=== PATIENT | female | born 1960 | race Two or more races ===

== ENCOUNTER 2016-09-04 20:07 | Inpatient (IN) | payer MEDICAID ==
--- NOTE | 2016-09-04 22:37 | EDPHY ---
HPI/HX/ROS/PE/MDM Narrative: Chief complaint: Left knee pain and swelling HPI: 56-year-old woman presenting with worsening left knee pain and swelling which is progressing upper leg. Patient was seen by her primary care physician yesterday and started on naproxen. Patient states that she is having increasing swelling in her needed feels like it is coming up the front of her thigh. She states that is warm to the touch. Denies any injuries. No fevers or chills. Does not have a history of prior knee injuries or gout in the past. She has been taking some naproxen with some relief. Today she called her primary care physician and was told to present here for evaluation for possible knee infection. She does have an appoint with her doctor tomorrow. ROS: 10 point Review of Systems is negative except as noted in the HPI. Physical exam: Gen: Awake, Alert, No Distress HEENT: Nose: no rhinorrhea Eyes: PERRLA, EOMI Mouth: Moist mucosa Neck: Supple, no JVD Chest: nontender, lungs clear to auscultation Heart: S1, S2 normal, no murmur Abd: Soft, non-tender, no guarding Back: no CVA tenderness, no midline tenderness Ext: no edema, left knee is swollen with an effusion and is mildly warm to the touch. There is no erythema. There is mild swelling progressing perhaps 4-5 cm upper anterior thigh. She has no calf tenderness or swelling. She has decreased range of motion of her knee secondary see some discomfort. She has no hip pain. There is no lymphadenopathy. Sensations intact. Skin: no rash Neuro: CN II-XII intact, Sensation grossly intact, Strength 5/5 in bilateral upper and lower extremities ED Course: 2255 synovial fluid is back. She has 49,159 white cells with no red cells in her aspirate. This is very concerning for the possibility of a septic joint. Preliminary result is that the crystals are negative. No other g stains are back at this point. I have discussed with Dr. Christiano Briceno, emergency physician at [facility] ED and I have spoke with Fabrice, the orthopedic PA for Dr. Zuleta. Plan will be to transfer the patient to [facility] Emergency Department where she will have an IV placed blood work will be drawn there. I do not think will be beneficial to put an IV in at this time as blood will be drawn right now would only be [place] over the [facility] any way and she will likely get antibiotics and treatment sooner by sending her directly there by private vehicle now. Patient's is here and will drive her over there. Dr. Song KENNEDY will continue to follow. - Data Points Laboratory Results: 09/04/16 21:00 Synovial Source SYNOVIAL Synovial Color PALE YELLOW (CLS/PALE YL) Synovial Appearance CLOUDY H (CLEAR) Synovial WBC Pending Synovial RBC Pending Synovial Crystals Pending Synovial Glucose Pending General Time Seen by Provider: 09/04/16 20:39 Initial Vital Signs: Initial Vital Signs Temperature (C) 36.9 C 09/04/16 20:34 Heart Rate 87 09/04/16 20:34 Respiratory Rate 18 09/04/16 20:34 Blood Pressure 110/71 09/04/16 20:34 O2 Sat (%) 94 09/04/16 20:34 O2 Delivery Mode Room Air Allergies/Adverse Reactions: Sulfa (Sulfonamide Antibiotics) Allergy (Intermediate, Verified 11/23/14 15:55) Rash Home Medications: Medication Instructions Recorded NITROGLYCERIN 09/17/09 Naproxen 09/04/16 Departure - Departure Disposition: [facility] ER Clinical Impression: Septic joint Condition: Fair Additional Instructions: Go directly to the [facility] Emergency Department for further evaluation.
[2016-09-04 22:46] LABS: GLUCOSE, SYNOVIAL FLUID 88 mg/dL (55-113); WBC, SYNOVIAL FLUID 49159 /mm3 (0-150)
--- NOTE | 2016-09-04 23:10 | UCPHY ---
H & P Patient Type: Established Chief Complaint Nursing Narrative: c/o l knee pain/swelling since saturday. saw her pcp yesterday started on naproxen. states swelling worse today Time Seen by Provider: 09/04/16 20:39 HPI/ROS: Chief complaint: Left knee pain and swelling HPI: 56-year-old woman presenting with worsening left knee pain and swelling which is progressing upper leg. Patient was seen by her primary care physician yesterday and started on naproxen. Patient states that she is having increasing swelling in her needed feels like it is coming up the front of her thigh. She states that is warm to the touch. Denies any injuries. No fevers or chills. Does not have a history of prior knee injuries or gout in the past. She has been taking some naproxen with some relief. Today she called her primary care physician and was told to present here for evaluation for possible knee infection. She does have an appoint with her doctor tomorrow. ROS: 10 point Review of Systems is negative except as noted in the HPI. Physical exam: Gen: Awake, Alert, No Distress HEENT: Nose: no rhinorrhea Eyes: PERRLA, EOMI Mouth: Moist mucosa Neck: Supple, no JVD Chest: nontender, lungs clear to auscultation Heart: S1, S2 normal, no murmur Abd: Soft, non-tender, no guarding Back: no CVA tenderness, no midline tenderness Ext: no calf edema, left knee is swollen with an effusion and is mildly warm to the touch. There is no erythema. There is mild swelling progressing perhaps 4- 5 cm upper anterior thigh. She has no calf tenderness or swelling. She has decreased range of motion of her knee secondary see some discomfort. She has no hip pain. There is no lymphadenopathy. Sensations intact. Skin: no rash Neuro: CN II-XII intact, Sensation grossly intact, Strength 5/5 in bilateral upper and lower extremities - Medical/Surgical History Hx Cardiac Disease: Yes Other PMH: angina - Family History Significant Family History: No pertinent family hx - Social History Smoking Status: Current every day smoker Constitutional: Initial Vital Signs Temperature (C) 36.9 C 09/04/16 20:34 Heart Rate 87 09/04/16 20:34 Respiratory Rate 18 09/04/16 20:34 Blood Pressure 110/71 09/04/16 20:34 O2 Sat (%) 94 09/04/16 20:34 O2 Delivery Mode Room Air Allergies/Adverse Reactions: Sulfa (Sulfonamide Antibiotics) Allergy (Intermediate, Verified 11/23/14 15:55) Rash Home Medications: Medication Instructions Recorded Aspirin EC [Aspirin EC 81 mg (*)] 81 mg PO DAILY 09/05/16 Herbals/Supplements -Info Only 1 ea PO DAILY 09/05/16 Ibuprofen [Motrin (*)] 600 mg PO DAILY PRN 09/05/16 Nitroglycerin [Nitrostat 0.4 mg 0.4 mg SL Q5M PRN 09/05/16 (*)] Medical Decision Making Procedures: Procedure: Arthrocentesis. After verbal informed consent was obtained explaining the risks including but not limited to infection and bleeding a arthrocentesis was performed on the left knee. The patient was prepped and draped in the usual sterile fashion. The joint was anesthetized with 1% lidocaine with epinephrine. Approximately 45 mL of cloudy yellow fluid was obtained. There were no complications. The procedure was performed by myself. ED Course/Re-evaluation: 2255 synovial fluid is back. She has 49,159 white cells with no red cells in her aspirate. This is very concerning for the possibility of a septic joint. Preliminary result is that the crystals are negative. No other g stains are back at this point. I have discussed with Dr. Christiano Briceno, emergency physician at [facility] ED and I have spoke with Fabrice, the orthopedic PA for Dr. Zuleta. Plan will be to transfer the patient to [facility] Emergency Department where she will have an IV placed blood work will be drawn there. I do not think will be beneficial to put an IV in at this time as blood will be drawn right now would only be [place] over the [facility] any way and she will likely get antibiotics and treatment sooner by sending her directly there by private vehicle now. Patient's is here and will drive her over there. Dr. Zuleta PA will continue to follow. - Data Points Laboratory Results: Laboratory Results 09/04/16 23:55 09/04/16 23:55 Microbiology Results: MICROBIOLOGY 09/04/16 21:00 Knee - Aspirate Gram Stain - Final 09/04/16 21:00 Knee - Aspirate Anaerobic Culture - Preliminary Medications Given: Discontinued Medications Sodium Chloride (Ns) 1,000 mls @ 0 mls/hr IV ONCE ONE PRN Reason: Wide Open Stop: 09/04/16 23:53 Last Admin: 09/05/16 00:18 Dose: 1,000 mls Cefepime HCl 2 gm/ Dextrose 100 mls @ 200 mls/hr IV EDNOW ONE PRN Reason: Protocol Stop: 09/05/16 00:43 Last Admin: 09/05/16 01:38 Dose: 100 mls Vancomycin/Sodium Chloride (Vancomycin 1 Gm (Premix)) 250 mls @ 250 mls/hr IV EDNOW ONE PRN Reason: Protocol Stop: 09/05/16 01:13 Last Admin: 09/05/16 00:25 Dose: 250 mls Vancomycin/Sodium Chloride (Vancomycin 1 Gm (Premix)) 250 mls @ 250 mls/hr IV Q12H OSVALDO Stop: 10/05/16 12:29 Last Admin: 09/05/16 16:39 Dose: Not Given Morphine Sulfate (Morphine) 4 mg IVP EDNOW ONE Stop: 09/04/16 23:54 Last Admin: 09/05/16 00:18 Dose: 4 mg Ondansetron HCl (Zofran) 4 mg IVP EDNOW ONE Stop: 09/04/16 23:54 Last Admin: 09/05/16 00:18 Dose: 4 mg Departure - Departure Disposition: [facility] Acute Clinical Impression: Septic joint Qualifiers: Septic arthritis location: knee Septic arthritis organism: due to unspecified organism Laterality: left Qualifier Code: (M00.9) Pyogenic arthritis, unspecified Condition: Fair - PQRS PQRS Measurement: NA
[2016-09-04 23:24] LABS: CRYSTALS, SYNOVIAL FLUID NONE SEEN (NONE SEEN)
--- NOTE | 2016-09-04 23:48 | EDPHY ---
H & P Time Seen by Provider: 09/04/16 20:39 HPI/ROS: HPI CHIEF COMPLAINT: left knee pain HISTORY OF PRESENT ILLNESS: This patient 56-year-old female, presents to the emergency room after she was seen at [facility] urgent care for left knee pain. Patient had a arthrocentesis performed and had fluid analysis and showed a white count close to 50,000. She was sent here for further evaluation and concern of septic knee. Patient tells me that on Saturday she developed knee pain this was atraumatic. The pain progressively got worse she saw her doctor was given naproxen however the pain persisted she went to urgent care [facility] and then was referred here. She denies having a septic joint in the past, denies IV drug use, denies any daily medication except nitroglycerin for angina. She does smoke tobacco. She tells me her pain is 6/10 left knee. Past Medical History: Angina Past Surgical History: Denies significant surgical history Social History: Daily tobacco use, denies drugs or alcohol Family History: Noncontributory ROS REVIEW OF SYSTEMS: A comprehensive 10 point review of systems is otherwise negative aside from elements mentioned in the history of present illness. Exam Constitutional triage nursing summary reviewed, vital signs reviewed, awake/ alert. Eyes normal conjunctivae and sclera, EOMI, PERRLA. HENT normal inspection, atraumatic, moist mucus membranes, no epistaxis, neck supple/ no meningismus, no raccoon eyes. Respiratory clear to auscultation bilaterally, normal breath sounds, no respiratory distress, no wheezing. Cardiovascular rate normal, regular rhythm, no murmur, no edema, distal pulses normal. Gastrointestinal soft, non-tender, no rebound, no guarding, normal bowel sounds, no distension, no pulsatile mass. Genitourinary no CVA tenderness. Musculoskeletal left knee: Tender palpation over the anterior patella, there is a joint effusion present on exam, she does have full range of motion however is pain with range of motion, she is neurovascularly intact distally with good distal pulse, good cap refill, warm extremity. No signs of significant erythema. no midline vertebral tenderness, full range of motion, no calf swelling, no tenderness of extremities, no meningismus, good pulses, neurovascularly intact. Skin pink, warm, & dry, no rash, skin atraumatic. Neurologic awake, alert and oriented x 3, AAOx3, moves all 4 extremities equally, motor intact, sensory intact, CN II-XII intact, normal cerebellar, normal vision, normal speech. Psychiatric normal mood/affect. Heme/Lymph/Immune no lymphadenopathy. Differential Diagnosis: Includes but is not limited to in a particular order, septic joint, inflammatory arthritis, gout, pseudogout Medical Decision Making: This patient had an IV established obtain blood work including CBC, ESR, CRP, patient had an x-ray of the left knee. She received IV pain medicine IV fluids and IV antibiotics. I will consult Orthopedics. Although this orthopedics was consulted at urgent care and is aware of this patient. Re-evaluation: 0112: re-evaluation at this time patient is resting comfortably. Broad- spectrum antibiotics ordered for IV vancomycin and IV cefepime for presumed septic joint. His noted CRP is very elevated, does have systemic white count, and synovial fluid that is concerning for septic joint. I consult the hospitalist service Dr. Alvarado who accepts admission. I have also consult Orthopedics Dr. Zuleta ED x-ray left knee: shows no bony abnormality med however on the medial aspect soft tissue there is a hypoechoic area this may be a bursitis. . 0151: Spoke with Dr. Gold Zuleta who will see and evaluate the patient. Source: Patient - Personal History Current Tetanus/Diphtheria Vaccine: Yes Current Tetanus Diphtheria and Acellular Pertussis (TDAP): Yes - Medical/Surgical History Hx Cardiac Disease: Yes Other PMH: angina - Family History Significant Family History: No pertinent family hx - Social History Smoking Status: Current every day smoker Constitutional: Initial Vital Signs Temperature (C) 36.9 C 09/04/16 20:34 Heart Rate 87 09/04/16 20:34 Respiratory Rate 18 09/04/16 20:34 Blood Pressure 110/71 09/04/16 20:34 O2 Sat (%) 94 09/04/16 20:34 O2 Delivery Mode Room Air Allergies/Adverse Reactions: Sulfa (Sulfonamide Antibiotics) Allergy (Intermediate, Verified 11/23/14 15:55) Rash Home Medications: Medication Instructions Recorded NITROGLYCERIN 09/17/09 Naproxen 09/04/16 Medical Decision Making - Data Points Laboratory Results: Laboratory Results 09/04/16 23:55 09/04/16 23:55 09/04/16 09/04/16 23:55 21:00 WBC 12.23 H 10^3/uL (3.80-9.50) RBC 4.61 10^6/uL (4.18-5.33) Hgb 13.5 g/dL (12.6-16.3) Hct 40.0 % (38.0-47.0) MCV 86.8 fL (81.5-99.8) MCH 29.3 pg (27.9-34.1) MCHC 33.8 g/dL (32.4-36.7) RDW 13.3 % (11.5-15.2) Plt Count 301 10^3/uL (150-400) MPV 10.9 fL (8.7-11.7) Neut % (Auto) 79.1 H % (39.3-74.2) Lymph % (Auto) 11.0 L % (15.0-45.0) [place] % (Auto) 9.2 % (4.5-13.0) Eos % (Auto) 0.2 L % (0.6-7.6) Baso % (Auto) 0.2 L % (0.3-1.7) Nucleat RBC Rel Count 0.0 % (0.0-0.2) Absolute Neuts (auto) 9.67 H 10^3/uL (1.70-6.50) Absolute Lymphs (auto) 1.35 10^3/uL (1.00-3.00) Absolute Monos (auto) 1.12 H 10^3/uL (0.30-0.80) Absolute Eos (auto) 0.02 L 10^3/uL (0.03-0.40) Absolute Basos (auto) 0.03 10^3/uL (0.02-0.10) Absolute Nucleated RBC 0.00 10^3/uL (0-0.01) Immature Gran % 0.3 % (0.0-1.1) Immature Gran # 0.04 10^3/uL (0.00-0.10) ESR 39 H MM/HR (0-30) PT 13.6 SEC (12.0-15.0) INR 1.05 (0.83-1.16) APTT 28.6 SEC (23.0-38.0) Sodium 142 mEq/L (134-144) Potassium 3.6 mEq/L (3.5-5.2) Chloride 107 mEq/L (97-110) Carbon Dioxide 21 L mEq/l (22-31) Anion Gap 14 mEq/L (8-16) BUN 14 mg/dL (7-23) Creatinine 0.7 mg/dL (0.6-1.0) Estimated GFR > 60 Glucose 172 H mg/dL (70-100) Calcium 9.9 mg/dL (8.5-10.4) C-Reactive Protein 205.4 H mg/L (<10.0) Fl Pathologist Review Pending Synovial Source SYNOVIAL Synovial Color PALE YELLOW (CLS/PALE YL) Synovial Appearance CLOUDY H (CLEAR) Synovial WBC 85323 H /mm3 (0-150) Synovial RBC 0 /mm3 (0-0) Synovial Neutrophils 92 H % (0-25) Synovial Lymphocytes 4 % Synov Monos/Macrophage 4 % Synovial Crystals Pending Synovial Glucose 88 mg/dL (55-113) Medications Given: Discontinued Medications Sodium Chloride (Ns) 1,000 mls @ 0 mls/hr IV ONCE ONE PRN Reason: Wide Open Stop: 09/04/16 23:53 Last Admin: 09/05/16 00:18 Dose: 1,000 mls Cefepime HCl 2 gm/ Dextrose 100 mls @ 200 mls/hr IV EDNOW ONE PRN Reason: Protocol Stop: 09/05/16 00:43 Last Admin: 09/05/16 01:38 Dose: 100 mls Vancomycin/Sodium Chloride (Vancomycin 1 Gm (Premix)) 250 mls @ 250 mls/hr IV EDNOW ONE PRN Reason: Protocol Stop: 09/05/16 01:13 Last Admin: 09/05/16 00:25 Dose: 250 mls Morphine Sulfate (Morphine) 4 mg IVP EDNOW ONE Stop: 09/04/16 23:54 Last Admin: 09/05/16 00:18 Dose: 4 mg Ondansetron HCl (Zofran) 4 mg IVP EDNOW ONE Stop: 09/04/16 23:54 Last Admin: 09/05/16 00:18 Dose: 4 mg Departure - Departure Disposition: [facility] Acute Clinical Impression: Septic joint Condition: Fair
[2016-09-04] MEDS ORDERED: NS 1,000 ML IV ONE (23:52)
[2016-09-04] MEDS ORDERED: ONDANSETRON 4 MG/2 ML VIAL IVP ONE (23:53)
[2016-09-05 00:05] LABS: % IMMATURE GRANULYOCYTES 0.3 % (0.0-1.1); ABSOLUTE IMMATURE GRANULOCYTES 0.04 10^3/uL (0.00-0.10); ADD DIFF? NO; ADD MORPH? NO; ADD SCAN? NO; ATYPICAL LYMPHOCYTE FLAG 20 (0-99); FRAGMENT RBC FLAG 0 (0-99); HEMOGLOBIN 13.5 g/dL (12.6-16.3); LEFT SHIFT FLG 0 (0-99); LIPEMIA HEMOLYSIS FLAG 90 (0-99); MEAN CELL HEMOGLOBIN 29.3 pg (27.9-34.1); MEAN CELL HEMOGLOBIN CONCENTR. 33.8 g/dL (32.4-36.7); MEAN CELL VOLUME 86.8 fL (81.5-99.8); MEAN PLATELET VOLUME 10.9 fL (8.7-11.7); PLATELET CLUMPS FLAG 20 (0-99); PLATELET COUNT 301 10^3/uL (150-400); RED BLOOD CELL COUNT 4.61 10^6/uL (4.18-5.33); RED CELL DISTRIBUTION WIDTH 13.3 % (11.5-15.2)
[2016-09-05 00:13] LABS: APTT 28.6 SEC (23.0-38.0); INR 1.05 (0.83-1.16); PROTIME(PATIENT) 13.6 SEC (12.0-15.0)
[2016-09-05] MEDS ORDERED: VANCOMYCIN HCL/NORMAL SALINE 250 ML IV ONE (00:14)
[2016-09-05] MEDS ORDERED: CEFEPIME HCL 2 GM in D5W 100 ML IV ONE (00:14)
[2016-09-05 00:23] LABS: CALCIUM 9.9 mg/dL (8.5-10.4); CARBON DIOXIDE 21 mEq/l (22-31); CREATININE 0.7 mg/dL (0.6-1.0); GLOMERULAR FILTRATION RATE > 60; GLUCOSE 172 mg/dL (70-100); POTASSIUM 3.6 mEq/L (3.5-5.2); SODIUM 142 mEq/L (134-144)
[2016-09-05 00:32] LABS: CHLORIDE 107 mEq/L (97-110)
[2016-09-05 00:33] LABS: ANION GAP 14 mEq/L (8-16)
[2016-09-05 00:55] LABS: C-REACTIVE PROTEIN 205.4 mg/L (<10.0)
[2016-09-05 01:14] LABS: SEDIMENTATION RATE 39 MM/HR (0-30)
[2016-09-05] MEDS ORDERED: BUPIVACAINE/EPI 0.25% 30 ML SDV ONE (02:43)
[2016-09-05] MEDS ORDERED: ACETAMINOPHEN 325 MG TAB PO PRN (02:49)
[2016-09-05] MEDS ORDERED: ONDANSETRON 4 MG/2 ML VIAL IVP PRN (02:49)
[2016-09-05] MEDS ORDERED: ONDANSETRON DISINTEGRATING 4 MG TAB PO PRN (02:49)
[2016-09-05] MEDS ORDERED: MIDAZOLAM 2 MG/2 ML VIAL ONE (03:09)
[2016-09-05] MEDS ORDERED: fentaNYL 100 MCG/2 ML INJ ONE ×2 (03:10→04:41)
[2016-09-05] MEDS ORDERED: PROPOFOL 200 MG/20 ML VIAL ONE ×2 (03:10)
[2016-09-05] MEDS ORDERED: LIDOCAINE 2% 100 MG/5 ML SYR IVP ONE (03:12)
[2016-09-05] MEDS ORDERED: ONDANSETRON 4 MG/2 ML VIAL ONE (03:25)
[2016-09-05] MEDS ORDERED: DEXAMETHASONE 4 MG/ML VIAL ONE (03:25)
--- NOTE | 2016-09-05 04:18 | POSTOPPROG ---
Post Op Note Date of Operation: 09/05/16 Surgeon: Valerio Zuleta Surgery Manager: None Anesthesia: LMA Pre-op Diagnosis: Septic Left Knee Post-op Diagnosis: Same Procedure: Arthroscopic I + D and synovectomy Findings: 55cc thick pus sent to lab Inf/Abcess present in the surg proc area at time of surgery?: Yes Depth: Deep Incisional (Fascial) (Inside knee joint) EBL: Minimal Specimen(s): See above
[2016-09-05] MEDS ORDERED: oxyCODONE IR 5 MG TAB PO PRN (04:28)
[2016-09-05 06:26] LABS: HEMOGLOBIN 12.5 g/dL (12.6-16.3); MEAN CELL HEMOGLOBIN 29.1 pg (27.9-34.1); MEAN CELL HEMOGLOBIN CONCENTR. 32.9 g/dL (32.4-36.7); MEAN CELL VOLUME 88.4 fL (81.5-99.8); RED BLOOD CELL COUNT 4.3 10^6/uL (4.18-5.33); RED CELL DISTRIBUTION WIDTH 13.4 % (11.5-15.2)
--- NOTE | 2016-09-05 06:29 | GHP ---
[f rep st] HISTORY AND PHYSICAL DATE OF ADMISSION: 09/05/2016 CHIEF COMPLAINT: Left septic knee. HISTORY OF PRESENT ILLNESS: Patient is a 56-year-old female with a history of angina who developed left knee pain starting on Saturday. She denies any trauma , twisting, or abrasion to that knee. She describes the pain as sharp, 10/10. She has been elevating it and taking Advil without relief. She was feverish on Saturday night. She presented to urgent care today because the swelling went up to her thigh with warmth. Denies redness over the knee or thigh. She denies history of diabetes. No IV drug use. Not on chronic immunosuppression. The patient was evaluated by Dr. Zuleta with Orthopedics and was taken emergently for incision and drainage and synovectomy. Found 55 mL of thick pus. REVIEW OF SYSTEMS: I completed a 10-point review of systems, negative except as noted in HPI. PAST MEDICAL HISTORY: Angina diagnosed at [place], per patient. PAST SURGICAL HISTORY: Cholecystectomy, tendon surgery, right wrist. FAMILY HISTORY: Mother with hypertension. Father of ALS. SOCIAL HISTORY: Lives in [place] with her son. Tobacco: Smokes 3 a day. Was smoking a pack a day for 15 years. Denies alcohol. Denies illicit drugs. MEDICATIONS: Nitroglycerin. Has not used in 8 months. ALLERGIES: Sulfa. IMAGING: Left knee x-ray read pending. PHYSICAL EXAMINATION: VITAL SIGNS: Temperature 36.8, blood pressure 139/58, heart rate 70s to 80s. Respirations 18, 99% on 3 L. GENERAL: The patient is sitting up in bed, in no acute distress. Very pleasant. HEENT: PERRLA. EOMI. Oropharynx clear. CV: Regular rate and rhythm. Has a 2/6 systolic murmur best heard at the left lower sternal border. No JVD. ABDOMEN: Soft, nontender , nondistended. Positive bowel sounds. : No suprapubic or CVA tenderness. MUSCULOSKELETAL: Left leg is elevated. Knee is wrapped with swelling, left thigh greater than right. NEURO: Cranial nerves 2 through 12 intact. PSYCH: Alert and oriented x3. LABORATORY DATA: WBC 12, hemoglobin 13, hematocrit 40, platelets 301. INR 1.05. PT 13. Sodium 142, potassium 3.6, chloride 107, bicarb 21, BUN 14, creatinine 0.6, glucose 172, calcium 9.9. CRP is 205. Knee aspirate with cloudy appearance, 49,000 WBCs, 92% neutrophils, crystals are pending. Glucose is 88. ASSESSMENT AND PLAN: 1. Left septic knee joint: unclear etiology as patient is not a known diabetic , not on chronic suppression, and denies IV drug use. Denies trauma to the knee. She underwent I & D by Dr. Zuleta. Cultures are pending. Treating empirically with vancomycin, pain control with Tylenol and p.r.n. oxycodone. We will have PT and OT evaluate this. 2. Heart murmur: The patient has never been told of this. Check an echocardiogram to rule out endocarditis given the unclear etiology of the knee infection. 3. Hyperglycemia: Glucose is 172. Patient denies known diagnosis of diabetes. Check A1c. 4. Leukocytosis: due to joint infection: Continue vancomycin. Gram stain is pending. Currently afebrile; check blood cultures if fevers. 5. Angina: The patient states she has had a stress test in the past that was normal. Has not had to use nitroglycerin for 8 months. 6. Diet: Regular. 7. Deep venous thrombosis prophylaxis: SCDs in case additional surgery warranted. 8. Disposition: The patient warrants inpatient admission given acute septic joint requiring surgical intervention, IV antibiotics. /[id number]/MODL MTDD
--- NOTE | 2016-09-05 06:34 | GOP ---
[f rep st] OPERATIVE REPORT DATE OF OPERATION: 09/05/2016 SURGEON: Valerio Zuleta MD PREOPERATIVE DIAGNOSIS: Septic left knee. POSTOPERATIVE DIAGNOSIS: Septic left knee. PROCEDURE PERFORMED: Arthroscopic irrigation and debridement with total synovectomy, left knee. FINDINGS: Remarkably dense synovitis was encountered throughout her knee. Prior to the arthroscopy, I aspirated 55 cc of thick purulent fluid. This fluid was also sent for culture and sensitivity. INDICATIONS: The patient is a 56-year-old woman, who has had a 3-4 day progressive history of increa sing knee pain and swelling. Her work-up was initially performed at the [facility] in [place], where a kn ee aspirate was performed. This showed 49,000 white cells, minimal red cells; 97% of these were neut rophils. She has a systemic elevated white count with a slight left shift. She has an elevated C-re active protein and erythrocyte sedimentation rate. She is brought to the operating room for definiti ve I and D procedure. DESCRIPTION OF PROCEDURE: After routinely checking the patient's identification and consent, and the successful induction of LMA general anesthetic, the patient's left lower extremity was prepped and d raped in the usual standard fashion. I exsanguinated the limb with an Esmarch wrap and pneumatic ludwig rniquet previously placed about the proximal left thigh. It was inflated to 250 mmHg. Anteromedial and anterolateral arthroscopic portals were carried sharply through the skin and then bluntly into th e joint. The arthroscope was introduced. The joint was insufflated. Routine systematic aspiration of the knee was undertaken; however, the synovitis in the suprapatellar compartment was so dense that I was really unable to see much of anything. I used the shaver to perform a synovectomy and suprapa tellar pouch. I then worked down to the medial gutter. I debrided the synovitis and the medial gutt er, and then worked into the lateral gutter and debrided the synovitis. The knee was flexed and a va lgus stress was placed. The medical compartment was identified. The medial meniscus was normal. Th e articular cartilage of the medial femoral condyle and medial tibial plateau were normal. The ACL w as then examined. This had normal tension. PCL was visualized by passing the scope into the posteri or compartment. I thoroughly irrigated the posterior compartment with approximately 6-700 mL of flui d. I kept the shaver in the front of the knee such that the fluid passed from the posterior to the a nterior aspect of the knee. I debrided as much synovitis as I was able, by passing the shaver medial ly into the posterior compartment. I debrided the prepatellar fat pad lightly on the medial side and then onto the lateral side. Lateral meniscus was normal. Popliteus tendon was visualized and was n ormal. Articular cartilage at the lateral femoral condyle and lateral tibial plateau were also adilene l. I then re-irrigated the suprapatellar pouch, the medial compartment, lateral compartment, and the femoral notch with a total of 9000 mL of normal saline. Once this was completed, all arthroscopic i nstruments were removed. Two portals were closed with simple sutures of 4-0 nylon followed by Band-A ids and a sterile bulky dressing, and compressive wrap. 10 mL of 0.25% Marcaine were infiltrated int o the knee for postoperative comfort and assistance in hemostasis. The patient was reversed from ane sthetic and extubated in the operating room. She was transferred to the recovery area in excellent c ondition. She tolerated the procedure well. There were no complications. /[id number]/MODL
[2016-09-05] MEDS ORDERED: D50W 25 GM/50 ML SYR IVP PRN (07:26)
[2016-09-05 07:32] LABS: ANION GAP 10 mEq/L (8-16); CARBON DIOXIDE 19 mEq/l (22-31); CHLORIDE 111 mEq/L (97-110); CREATININE 0.6 mg/dL (0.6-1.0); GLOMERULAR FILTRATION RATE > 60; GLUCOSE 131 mg/dL (70-100); POTASSIUM 4.2 mEq/L (3.5-5.2); SODIUM 140 mEq/L (134-144)
[2016-09-05] MEDS: INSULIN LISPRO 100 UNIT/ML SC SCH ×3 (09:10→17:45)
--- NOTE | 2016-09-05 09:10 | DX ---
Left Knee, Four Views, at 12:04 a.m. Clinical History: 56-year-old female in the ED with knee pain. Comparison Study: None. Findings: There appears to be a soft tissue defect over the medial aspect of the knee (versus extrins ic compression). The bones are adequately mineralized, with no lytic or blastic lesion, fracture, dis location, or marginal erosion. There is a sdjgbnuo-lw-eitog-sized suprapatellar joint effusion presen t. Impression: 1. There is no acute osseous abnormality. 2. Obvjheqe-gp-ppgmj sized suprapatellar joint effusion.
[2016-09-05 09:44] LABS: HEMOGLOBIN A1C 5.7 % (4.0-6.0)
--- NOTE | 2016-09-05 10:43 | GCON ---
[f rep st] CONSULTATION CHIEF COMPLAINT: Left knee pain, swelling. HISTORY OF PRESENT ILLNESS: The patient is a pleasant 56-year-old female who presents today for evaluation of left knee pain. She initially began experiencing pain in her left knee sometime Saturday and reports a gradual onset of this pain. She denies any specific mechanism of injury, insidious event, or significant change in her activity that preceded this pain. She was initially seen by her primary care provider on Saturday, who prescribed naproxen for this pain. However, the patient states this pain persisted enough that she presented to the [facility] urgent care earlier this evening. At [facility], the patient was seen by Dr. Langford, who was able to aspirate the knee and send a sample off for cultures. Initial fluid analysis showed a white count close to 50,000. The patient was then sent to the [facility] emergency department for further evaluation with a concern of a septic left knee. Today, the patient states her pain is currently 6/10 in her left knee. She reports that her swelling has gradually increased since Saturday and notes extension up into her thigh earlier today, which prompted her to visit the urgent care. She denies having a septic joint in the past, as well as denies any IV drug use as well as any current medications. She notes no recent infections. She has no additional concerns or complaints at this time. PAST MEDICAL HISTORY: This is significant for angina, for which the patient takes nitroglycerin for. PAST SURGICAL HISTORY: The patient reports a past surgical history significant for a carpal tunnel release as well as the removal of gallstones, possibly nephrolithiasis. CURRENT MEDICATIONS: The patient reports that she takes nitroglycerin for angina, which she notes she has not used for approximately 8 months. She also states that she began recently taking naproxen for this current issue. She denies any additional medication use. ALLERGIES: The patient reports an allergy to sulfa medications, which causes a rash. SOCIAL HISTORY: The patient denies any significant alcohol consumption. The patient reports daily tobacco use and notes that she is a smoker. The patient denies any current recreational drug use. FAMILY HISTORY: No significant contributory family history is reported today. REVIEW OF SYSTEMS: A comprehensive 10-point review of systems was reviewed today with no additional concerns, complaints, or abnormal findings noted in the HPI or PMH. PHYSICAL EXAMINATION: VITAL SIGNS: BP 136/81. HR 76 BPM. Respirations 18 per minute. O2 sats 94% on room air. Temperature 36.7 degrees C. GENERAL: Healthy-appearing female who presents in NAD. Nontoxic in appearance. HEENT: NC/AT. EOMI. PERRLA. Ears and nares are patent and without discharge. OP is clear. Trachea midline NECK: NTTP. Full ROM. Supple. No cervical LAD noted. RESPIRATORY: CTAB. No increased WOB noted. CARDIOVASCULAR: RRR. No M/C/G/R. ABDOMEN: Soft, NT/ND. No HSM. No masses. MUSCULOSKELETAL: Examination of the left knee reveals TTP over the anterior patella. Moderate joint effusion is present on exam. The patient demonstrates full AROM, however, experiences pain with flexion of the knee. Knee palpation reveals mild calor. Posterior calf is NTTP. No palpable vascular cords. Negative Homans bilaterally. No significant erythema or discharge noted. SKIN: See above dictation concerning left knee, otherwise warm and dry. NEUROLOGIC: A and O x3. No deficits noted. DTRs are 2+ in the upper and lower extremities with symmetry. PSYCH: Appropriate mood and affect. The patient is pleasant and cooperative with today's exam. IMAGING: Four views of the left knee are reviewed today, showing no acute fracture or dislocation. Mild medial joint space narrowing is noted. ASSESSMENT: Left knee effusion, concern for a septic joint. PLAN: This patient's case and radiographs were reviewed by Dr. Zuleta today, who also saw the patient in the emergency department. After a discussion of treatment options with the patient, including surgical intervention with incision and debridement arthroscopically, the patient has decided to proceed with this washout. Risks and benefits of this surgical procedure were discussed with the patient today, and signed informed consent was obtained. The patient will be taken to the OR later this morning for an arthroscopic incision and debridement performed by Dr. Zuleta. All of the patient's questions were answered today and her concerns addressed. She has relayed her understanding of the current care plan and education presented today and appears pleased with the care she has received today. /[id number]/MODL MTDD
[2016-09-05] MEDS ORDERED: VANCOMYCIN HCL/NORMAL SALINE 250 ML IV SCH (12:30)
--- NOTE | 2016-09-05 12:42 | ECHO ---
[id number] + + [address] : : [place] [address] : : [phone] + + Adult Echocardiographic Report + ------+ :Name: LYN MCNAIR MStudy Date: 09/05/2016 09:01 AM : : Hospital Admission Number: [id number] Zbigniewo n: 374: :: 1960 Gender: Female Height: 65 in : :Age: 56 yrs Race: [facility] Weight: 139 lb : :Reason For Study: Septic joint with unclear : :etiology/Murmur/Eval for vegetation BSA: 1.7 meters 2 : + ------+ MMode/2D Measurements & Calculations IVSd: 0.48 cm LVIDd: 4.5 cmFS: 52.2 % LVLd ap4: 7.6 cm LVPWd: 0.63 cm LVIDs: 2.2 cmEDV(Teich): 94.1 ml EDV(MOD-sp4): 37.0 ml ESV(Teich): 15.6 ml LVLs ap4: 6.4 cm EF(Teich): 83.4 % ESV(MOD-sp4): 11.0 ml EF(MOD-sp4): 70.3 % SV(MOD-sp4): 26.0 ml Normal Measurement Values: + + :LVIDd (3.5-5.7cm) IVSd (0.6-1.1cm) LVPWd (0.6-1.1cm) Aortic Root (2.0-3.7cm)Left Atrium (1.5-4.0cm): :LV Vol(d) (76-115ml) LV Vol(s) (29-48ml) Ejec Fraction (50-65%)PV Gonsalo (0.6- 1.2m/s) TV Gonsalo (0.4-1.0m/s) : :MV E Gonsalo (0.8-1.0m/s)MV A Gonsalo (0.3-1.0m/s)LVOT Gonsalo (0.7-1.2m/s) Asc Ao Gonsalo ( 0.9-1.8m/s) : + + Doppler Measurements & Calculations MV E max gonsalo: 80.9 cm/sec Ao V2 max: 156.1 cm/sec TR max gonsalo: 207.7 cm/sec MV A max gonsalo: 103.7 cm/sec Ao max P.7 mmHg TR max P.3 mmHg MV E/A: 0.78 RAP systole: 5.0 mmHg RVSP(TR): 22.3 mmHg Left Ventricle The left ventricle is normal in size and function. There is normal left ventricular wall thickness. Left ventricular systolic function is normal. E/a wave reversal. Ejection Fraction = 65-70%. No regional wall motion abnormalities noted. Right Ventricle The right ventricle is normal in size and function. Atria The left atrial size is normal. Right atrial size is normal. The interatrial septum is intact with no evidence for an atrial septal defect. Mitral Valve The mitral valve is normal in structure and function. There is no evidence of mitral valve prolapse. There is no mitral valve stenosis. There is trace mitral regurgitation. Tricuspid Valve Normal tricuspid valve. There is trace tricuspid regurgitation. Aortic Valve The aortic valve opens well. There is no aortic stenosis. There is no aortic insufficiency. Pulmonic Valve The pulmonic valve is not well visualized. There is no pulmonic valvular regurgitation. Great Vessels The aortic root is normal size. Pericardium/Pleural There is no pericardial effusion. Conclusion A complete two-dimensional transthoracic echocardiogram was performed (2D, M-mode, Doppler and color flow Doppler). The left ventricle is normal in size and function. Left ventricular systolic function is normal. E/a wave reversal. Ejection Fraction = 65-70%. There is trace mitral regurgitation. There is trace tricuspid regurgitation. Final Reading Physician: Maverick Canales signed on 09/05/2016 12:41 PM Ordering Physician: Kay Alvarado Performed By: Leslie Weston, CS
--- NOTE | 2016-09-05 13:13 | SOAPPROG ---
SOAP Progress Note Assessment/Plan: Assessment/Plan: 1. Left knee septic joint, non-traumatic POD~8hs post op s/p I&D performed by Dr. Zuleta - Cont PT/OT - Cont SCDs for VTE mechanical prophylaxis - No current VTE chemoprophylaxis (low risk) - Cont current Abx per hospitalists, cultures pending - Await d/c disposition from ID/Hospitalist group 09/05/16 12:58 Subjective: Pt seen at bedside, family present for exam. She states she has no significant pain at this time, and feels much improved over last night. She states her swelling is improved over last night. She denies any fevers, chills, n/v, fontana, syncope, dizziness, abd pain or post calf pain bilaterally. She also continues to deny any n/t in her LLE. She states she is tolerating her diet and medications well. She and her family have no additional concerns or complaints at this time. Objective: Vital Signs Temp Pulse Resp BP Pulse Ox 36.8 C 77 16 101/52 L 94 09/05/16 11:02 09/05/16 11:02 09/05/16 11:02 09/05/16 11:02 09/05/16 11:02 Microbiology 09/05/16 03:50 Gram Stain - Final Knee - Aspirate Laboratory Results 09/05/16 06:15 09/05/16 06:15 09/04/16 09/05/16 09/06/16 05:59 05:59 05:59 Intake Total 1500 Output Total 0 Balance 1500 PT 13.6 SEC (12.0-15.0) 09/04/16 23:55 INR 1.05 (0.83-1.16) 09/04/16 23:55 Pt seen at bedside, A&Ox3, appropriate mood and affect. Pt in NAD, non-toxic in appearance. Exam of LLE reveals decreased swelling and erythema since this am. Intact post operative dressings, dry, no significant drainage, calor or induration noted. Mild TTP over anterior knee and distal thigh, improved since earlier this am. Pt moves leg well. Post calves NTTP, no palpable vascular cords, negative Nicol's bilat. DNVI BLE. ICD10 Worksheet Patient Problems: Problems Problem Status Diagnosed Septic joint Acute
[2016-09-05] MEDS: ACETAMINOPHEN 325 MG TAB PO SCH ×2 (13:52→22:55)
[2016-09-05] MEDS ORDERED: NITROGLYCERIN 0.4 MG BTL SL PRN (15:33)
--- NOTE | 2016-09-05 15:35 | HOSPPROG ---
Hospitalist Progress Note Assessment/Plan: 56-year-old female presents emergency room complaints of left knee pain. This is my 1st encounter with the patient, chart reviewed. Patient discussed with Dr. Awan of Infectious Disease. #Left knee septic joint, non-traumatic POD~8hs post op s/p I&D performed by Dr. Zuleta - Cont PT/OT - Cont SCDs for VTE mechanical prophylaxis - No current VTE chemoprophylaxis (low risk) - Cont current Abx per Infectious Disease, cultures pending # pain This is well controlled currently # heart murmur Echocardiogram appears stable # leukocytosis Acute response infection # hyperglycemia Likely acute response Hemoglobin A1c 5.7 # disposition Unclear given need for further antibiotic therapy intervention Continue supportive management Continue to follow cultures Subjective: Feeling better today. Less pain in the left lower extremity. No specific complaints or issues. Objective: Vital Signs Temp Pulse Resp BP Pulse Ox 36.8 C 77 16 101/52 L 94 09/05/16 11:02 09/05/16 11:02 09/05/16 11:02 09/05/16 11:02 09/05/16 11:02 Microbiology 09/05/16 03:50 Gram Stain - Final Knee - Aspirate Laboratory Results 09/05/16 06:15 09/05/16 06:15 09/04/16 09/05/16 09/06/16 05:59 05:59 05:59 Intake Total 1500 Output Total 0 Balance 1500 PT 13.6 SEC (12.0-15.0) 09/04/16 23:55 INR 1.05 (0.83-1.16) 09/04/16 23:55 - Physical Exam Constitutional: no apparent distress, appears nourished Eyes: PERRL, anicteric sclera Ears, Nose, Mouth, Throat: moist mucous membranes, hearing normal Cardiovascular: No JVD, No tachycardia Respiratory: no respiratory distress, reduced air movement Gastrointestinal: No tenderness, No ascites Skin: warm, no rashes or abrasions Musculoskeletal: muscular tenderness, abnormal gait, generalized weakness Neurologic: AAOx3 Psychiatric: interacting appropriately, not anxious, not encephalopathic ICD10 Worksheet Patient Problems: Problems Problem Status Diagnosed Septic joint Acute
[2016-09-06] MEDS ORDERED: HYDROmorphONE/DILAUDID 1 MG/ML SYR IVP PRN (00:17)
--- NOTE | 2016-09-06 02:37 | GCON ---
[f rep st] CONSULTATION INPATIENT INFECTIOUS DISEASE CONSULTATION. REFERRING PHYSICIAN: Debbie Gray NP REASON FOR REFERRAL: Left knee septic arthritis. HISTORY OF PRESENT ILLNESS: Patient is a 56-year-old female, who was admitted to [facility] through the emergency room on 09/04/2016. She had an acute illness consisting of the sudden on set of left knee pain. She had an arthrocentesis performed at Urgent Care, and analysis showed a hig h white blood cell count. She had no known prior trauma. Patient was given IV vancomycin and IV cef epime. She was admitted and continued on vancomycin monotherapy. We are consulted to help ascertain the bacterial cause and guide therapy. PAST MEDICAL HISTORY: History of angina. PAST SURGICAL HISTORY: 1. Status post cholecystectomy. 2. Status post right wrist tendon surgery. ANTIBIOTICS: Vancomycin. ALLERGIES: Patient is allergic to sulfa drugs. SOCIAL HISTORY: Patient lives with her son and his . She smokes 3 cigarettes a day. She is a l evan-time tobacco user. No alcohol use. No drug use. FAMILY HISTORY: Reviewed but noncontributory. REVIEW OF SYSTEMS: Other than that detailed above in history of present illness, comprehensive 10-sy stem review is negative. PHYSICAL EXAMINATION: VITAL SIGNS: Temperature maximum is 37.8, temperature current is 36.8, heart rate is 72, respiratory rate is 16, blood pressure is 114/64. GENERAL: Patient is a well-formed, we ll-nourished, middle-aged female in no acute distress. She is not toxic in appearance. She is alert and oriented x3. She is in a pleasant demeanor. HEENT: Normocephalic for age. Head atraumatic. No scleral icterus. No oral lesion. No drainage from the nares. Eyes lids and conjunctivae within normal limits. Pupils are equal and round bilaterally. NECK: Sup ple without meningismus. LUNGS: Clear to auscultation bilaterally with good effort. HEART: Regula r rate and rhythm. Mild systolic murmur heard. No rub or gallop. No significant peripheral edema. SKIN: Warm and dry to the touch. No rash noted. MUSCULOSKELETAL: No muscle belly tenderness is n oted. Patient has notable left knee inflammation but is status post washout. NEURO: Cranial nerves 2-12 seem to be intact. Peripheral sensation seems intact in extremities. LABORATORY DATA: The patient has a CBC dated 09/05/2016, shows a white blood cell count of 13.9, hem oglobin of 12.5, hematocrit 38.0, platelet count of 264. Serum chemistries on 09/05/2016, showed sod ium of 140, potassium of 4.2, chloride 111, bicarbonate of 19, BUN of 13 and creatinine is 0.6. C-re active protein is elevated 205. Joint fluid dated 09/04/2016, shows 49,000 white blood cells, 0 red blood cells, 92% segmented neutrophils, synovial glucose is 88. MICROBIOLOGIC DATA: Patient has knee joint fluid dated 09/04/2016, which shows 4+ polymorphonuclear white cells and organisms on Gram stain with no growth at 18 hours. Joint fluid from 09/05/2016, aga in shows no organisms on the Gram stain and the culture is pending. ASSESSMENT: 1. Acute left knee septic arthritis bishop paiute joint. So far no growth in culture. Gram stain negative . Will change vancomycin to ceftriaxone given MRSA. Would typically be readily apparent on both Gra m stain and culture results at this point. Considering the possibility of Neisseria gonorrhea septic arthritis. Will check a nuclear acid amplification test in the urine. Meantime, we will continue w ith ceftriaxone monotherapy. PLAN: 1. Discontinue vancomycin. 2. Start ceftriaxone 1 g IV q.24 hours. 3. Follow laboratory and culture results and clinical course. /[id number]/MODL
[2016-09-06 05:48] LABS: HEMATOCRIT 32.8 % (38.0-47.0); HEMOGLOBIN 10.8 g/dL (12.6-16.3); MEAN CELL HEMOGLOBIN 28.9 pg (27.9-34.1); MEAN CELL HEMOGLOBIN CONCENTR. 32.9 g/dL (32.4-36.7); MEAN CELL VOLUME 87.7 fL (81.5-99.8); RED BLOOD CELL COUNT 3.74 10^6/uL (4.18-5.33); RED CELL DISTRIBUTION WIDTH 13.4 % (11.5-15.2)
[2016-09-06] MEDS: ACETAMINOPHEN 325 MG TAB PO SCH ×3 (06:15→22:05)
[2016-09-06 06:25] LABS: ANION GAP 10 mEq/L (8-16); CARBON DIOXIDE 24 mEq/l (22-31); CHLORIDE 109 mEq/L (97-110); CREATININE 0.6 mg/dL (0.6-1.0); GLOMERULAR FILTRATION RATE > 60; GLUCOSE 133 mg/dL (70-100); SODIUM 143 mEq/L (134-144)
[2016-09-06] MEDS: INSULIN LISPRO 100 UNIT/ML SC SCH ×2 (07:59→11:59)
--- NOTE | 2016-09-06 12:58 | SOAPPROG ---
SOAP Progress Note Assessment/Plan: Assessment/Plan: 1. Left knee septic joint, non-traumatic POD~1.5 post op s/p I&D performed by Dr. Zuleta - Cont PT/OT - Cont SCDs for VTE mechanical prophylaxis - No current VTE chemoprophylaxis (low risk) - Cont Ceftriaxone monotherapy per ID - Await d/c disposition plan from ID/Hospitalists, ok to d/c from ortho standpoint w/ appropriate outpatient ABX therapy plan - Pt will follow up w/ Dr. Zuleta in clinic in 10 days as an outpatient, or sooner with any additional concerns or complaints. 09/06/16 12:54 09/06/16 13:00 Subjective: Pt continue to report significant improvement since her I&D/ABX. She reports no significant pain today, and that her swelling continues to improve. She denies any constitutional symptoms, as well as post calf pain. She has no additional concerns or complaints at this time, and reports she is anxious to d/ c pending ID/hospitalist approval and abx followup/plan. Objective: Vital Signs Temp Pulse Resp BP Pulse Ox 36.6 C 75 16 105/54 L 96 09/06/16 12:00 09/06/16 12:00 09/06/16 12:00 09/06/16 12:00 09/06/16 12:00 Microbiology 09/05/16 03:50 Gram Stain - Final Knee - Aspirate 09/05/16 03:50 Mycobacterial Smear (GABI) - Final Knee - Aspirate Laboratory Results 09/06/16 04:18 09/06/16 04:18 09/05/16 09/06/16 09/07/16 05:59 05:59 05:59 Intake Total 1500 1670 Output Total 0 Balance 1500 1670 PT 13.6 SEC (12.0-15.0) 09/04/16 23:55 INR 1.05 (0.83-1.16) 09/04/16 23:55 A&Ox3, appropriate mood and affect. Pleasant and cooperative with exam. Pt is NAD, non-toxic in appearance. VSS. Exam of LLE reveals no significant swelling , discoloration or deformity. Bandages intact, dry, no significant erythema, discharge, calor or induration. Pt moves leg well. Knee is ligamentously stable no exam, grossly NTTP. Post calves NTTP, no palpable vascular cords, negative Nicol's bilat. DNVI BLE. ICD10 Worksheet Patient Problems: Problems Problem Status Diagnosed Septic joint Acute
--- NOTE | 2016-09-06 14:42 | HOSPPROG ---
Hospitalist Progress Note Assessment/Plan: 56-year-old female presents emergency room complaints of left knee pain. This is my 1st encounter with the patient, chart reviewed. Patient discussed with Dr. Awan of Infectious Disease. #Left knee septic joint, non-traumatic POD #1 s/p I&D performed by Dr. Zuleta - Cont PT/OT - Cont SCDs for VTE mechanical prophylaxis - No current VTE chemoprophylaxis (low risk) - Cont current Abx per Infectious Disease, cultures pending # pain -This is well controlled currently # heart murmur -Echocardiogram appears stable # leukocytosis -Acute response infection -improving # hyperglycemia -Likely acute response -Hemoglobin A1c 5.7 # disposition Unclear given need for further antibiotic therapy intervention Continue supportive management Continue to follow cultures Await ID recs for abx therapy Subjective: Feeling well. Pain stable. Ambualting. Objective: Vital Signs Temp Pulse Resp BP Pulse Ox 36.6 C 75 16 105/54 L 96 09/06/16 12:00 09/06/16 12:00 09/06/16 12:00 09/06/16 12:00 09/06/16 12:00 Microbiology 09/05/16 03:50 Gram Stain - Final Knee - Aspirate 09/05/16 03:50 Mycobacterial Smear (GABI) - Final Knee - Aspirate Laboratory Results 09/06/16 04:18 09/06/16 04:18 09/05/16 09/06/16 09/07/16 05:59 05:59 05:59 Intake Total 1500 1670 Output Total 0 Balance 1500 1670 PT 13.6 SEC (12.0-15.0) 09/04/16 23:55 INR 1.05 (0.83-1.16) 09/04/16 23:55 - Physical Exam Constitutional: no apparent distress, not in pain Eyes: PERRL, anicteric sclera Ears, Nose, Mouth, Throat: moist mucous membranes, hearing normal Cardiovascular: No JVD, No edema Gastrointestinal: No tenderness, No ascites Skin: warm, No induration Musculoskeletal: muscular tenderness, generalized weakness Neurologic: AAOx3 Psychiatric: not anxious, not encephalopathic, thought process linear ICD10 Worksheet Patient Problems: Problems Problem Status Diagnosed Septic joint Acute
--- NOTE | 2016-09-06 16:13 | PCMIDPN ---
Assessment/Plan: Assessment: L knee septic arthritis -- eyak joint. Micro cultures unrevealing to this point. Patient is stable and improved on ceftriaxone monotherapy. My greatest suspicion is that her dental work approximately 2 weeks prior to the left knee symptoms onset may have caused a brief bacteremia with oral bacteria which were having trouble culturing from the synovial fluid. Plan: 1. Continue ceftriaxone monotherapy. 2. Follow appearance of left knee. 3. PICC line insertion and plan continued IV antibiotic therapy for total of 3 weeks. 09/07/16 08:35 Subjective: Patient is feeling better. She is able to tolerate some ambulation on the left leg. No fevers or chills. Objective: Ceftriaxone # 3 Vital Signs Temp Pulse Resp BP Pulse Ox 36.6 C 75 16 105/54 L 96 09/06/16 12:00 09/06/16 12:00 09/06/16 12:00 09/06/16 12:00 09/06/16 12:00 Microbiology 09/05/16 03:50 Gram Stain - Final Knee - Aspirate 09/05/16 03:50 Mycobacterial Smear (GABI) - Final Knee - Aspirate Laboratory Results 09/06/16 04:18 09/06/16 04:18 09/05/16 09/06/16 09/07/16 05:59 05:59 05:59 Intake Total 1500 1670 Output Total 0 Balance 1500 1670 ESR 39 MM/HR (0-30) H 09/04/16 23:55 C-Reactive Protein 205.4 mg/L (<10.0) H 09/04/16 23:55 - Physical Exam General Appearance: WD/WN, alert, no apparent distress, non-toxic Respiratory: lungs clear, normal breath sounds, No respiratory distress Cardiac/Chest: regular rate, rhythm, No tachycardia Extremities: normal inspection, No non-tender, No inflammation, No erythema Skin: normal color, warm/dry, No rash Neuro/Psych: alert, normal mood/affect, oriented x 3 ICD10 Worksheet Patient Problems: Problems Problem Status Diagnosed Septic joint Acute
[2016-09-06 22:57] VITALS: PULSE 81
[2016-09-07 05:16] LABS: HEMATOCRIT 34.6 % (38.0-47.0); HEMOGLOBIN 11.7 g/dL (12.6-16.3); MEAN CELL HEMOGLOBIN 29.9 pg (27.9-34.1); MEAN CELL HEMOGLOBIN CONCENTR. 33.8 g/dL (32.4-36.7); MEAN CELL VOLUME 88.5 fL (81.5-99.8); RED BLOOD CELL COUNT 3.91 10^6/uL (4.18-5.33); RED CELL DISTRIBUTION WIDTH 13.5 % (11.5-15.2)
[2016-09-07 05:26] LABS: ANION GAP 7 mEq/L (8-16); CALCIUM 9.2 mg/dL (8.5-10.4); CARBON DIOXIDE 29 mEq/l (22-31); CHLORIDE 107 mEq/L (97-110); CREATININE 0.6 mg/dL (0.6-1.0); GLOMERULAR FILTRATION RATE > 60; GLUCOSE 92 mg/dL (70-100); POTASSIUM 4.5 mEq/L (3.5-5.2); SODIUM 143 mEq/L (134-144)
[2016-09-07] MEDS: ACETAMINOPHEN 325 MG TAB PO SCH ×2 (06:24→13:51)
[2016-09-07 07:54] VITALS: RESP 16; TEMP 98.1
--- NOTE | 2016-09-07 08:01 | SOAPPROG ---
SOAP Progress Note Assessment/Plan: Assessment/Plan: 1. Left knee septic joint, non-traumatic POD~2 post op s/p I&D performed by Dr. Zuleta on 09/05/16 early am - Cont PT/OT, encourage OOB, walking today as tolerated - Cont SCDs for VTE mechanical prophylaxis - No current VTE chemoprophylaxis (low risk) - Cont Ceftriaxone monotherapy per ID - Awaiting d/c disposition plan from ID/Hospitalists, ok to d/c from ortho standpoint w/ appropriate outpatient ABX therapy plan - Pt will follow up w/ Dr. Zuleta in clinic in 10 days as an outpatient, or sooner with any additional concerns or complaints. 09/07/16 07:53 09/07/16 08:04 Subjective: Pt continues to report improvement each day. Today, she reports no significant pain, f/c/n/v. She reports she is tolerating her meds and diet well. She reports she has been up with PT/OT yesterday and walked for extended distances. She reports initial discomfort with ambulation, however, she states this improved as she began to walk. She again reports that her swelling is decreased from the previous day. She remains anxious to discharge to home or reports she may stay with her daughter. Objective: Vital Signs Temp Pulse Resp BP Pulse Ox 36.8 C 81 18 103/56 L 95 09/06/16 22:54 09/06/16 22:54 09/06/16 22:54 09/06/16 22:54 09/06/16 22:54 Microbiology 09/05/16 03:50 Gram Stain - Final Knee - Aspirate Laboratory Results 09/07/16 04:24 09/07/16 04:24 09/06/16 09/07/16 09/08/16 05:59 05:59 05:59 Intake Total 1670 Balance 1670 PT 13.6 SEC (12.0-15.0) 09/04/16 23:55 INR 1.05 (0.83-1.16) 09/04/16 23:55 A&O x3, NAD, non toxic in appearance. [place] for exam, pt seen at bedside. VSS , appropriate mood and affect. Pleasant and cooperative with today's exam. Exam of LLE reveals intact vandana bandage dressing, which is removed, revealing no significant swelling, discoloration or deformity. Incision sites w/out significant erythema, discharge, calor or induration. Pt moves legs well, full extension noted. Knee exam grossly NTTP, post calves are NTTP, no palpable vascular cords, negative Nicol's bilat. DNVI BLE. ICD10 Worksheet Patient Problems: Problems Problem Status Diagnosed Septic joint Acute
--- NOTE | 2016-09-07 08:37 | HOSPPROG ---
Hospitalist Progress Note Assessment/Plan: 56-year-old female presents emergency room complaints of left knee pain. This is my 1st encounter with the patient, chart reviewed. Evaluated the patient with Dr Hernandez #Left knee septic joint, non-traumatic POD #2 s/p I&D performed by Dr. Zuleta -Ceftriaxone - Cont PT/OT - Cont SCDs for VTE mechanical prophylaxis - No current VTE chemoprophylaxis (low risk) # pain -This is well controlled currently # heart murmur -Echocardiogram shows normal LV systolic function/ef 65-70% # leukocytosis -Acute response infection -improving # hyperglycemia -Likely acute response -Hemoglobin A1c 5.7 # disposition: home today after PICC line is placed Subjective: Alice is feeling much better today/ is able to ambulate. Objective: Vital Signs Temp Pulse Resp BP Pulse Ox 36.7 C 81 16 110/47 L 95 09/07/16 07:54 09/07/16 07:54 09/07/16 07:54 09/07/16 07:54 09/07/16 07:54 Microbiology 09/05/16 03:50 Gram Stain - Final Knee - Aspirate Laboratory Results 09/07/16 04:24 09/07/16 04:24 09/06/16 09/07/16 09/08/16 05:59 05:59 05:59 Intake Total 1670 Balance 1670 PT 13.6 SEC (12.0-15.0) 09/04/16 23:55 INR 1.05 (0.83-1.16) 09/04/16 23:55 - Physical Exam Constitutional: no apparent distress, appears nourished, not in pain Eyes: PERRL Ears, Nose, Mouth, Throat: hearing normal Cardiovascular: regular rate and rhythym Respiratory: no respiratory distress Gastrointestinal: normoactive bowel sounds Skin: other (left knee in vandana wrap) Musculoskeletal: no muscle tenderness Psychiatric: interacting appropriately, not anxious ICD10 Worksheet Patient Problems: Problems Problem Status Diagnosed Septic joint Acute
[2016-09-07] MEDS ORDERED: ALTEPLASE 2 MG VIAL IVP PRN (11:09)
--- NOTE | 2016-09-07 11:09 | PDIAF ---
- Diagnosis Diagnosis: Left knee septic arthritis Code Status: Full Code - Medication Management Discharge Medications: Medications to Continue on Transfer Aspirin EC [Aspirin EC 81 mg (*)] 81 mg PO DAILY 09/05/16 [Last Taken 08/22/16] Herbals/Supplements -Info Only 1 ea PO DAILY 09/05/16 [Last Taken Unknown] Ibuprofen [Motrin (*)] 600 mg PO DAILY PRN 09/05/16 [Last Taken 09/04/16] Nitroglycerin [Nitrostat 0.4 mg (*)] 0.4 mg SL Q5M PRN 09/05/16 [Last Taken Unknown] Prison Antibiotics: Ceftriaxone 2 g IV daily Planning Feeder Antibiotic Stop Date: 09/26/16 Discharge Medications: Refer to the Discharge Home Medication list for PRN reason. PICC Care - Routine: Yes - Labs/Radiology CBC Date: 09/12/16 (Fax results to Dr. Awan [phone]) CMP Date: 09/12/16 (Fax results to Dr. Awan [phone]) CRP Date: 09/19/16 (Fax results to Dr. Awan [phone]) - Follow Up Care Current Providers and Referrals: VILMA PORTILLO,. [Family Provider] - As per Instructions Valerio Zuleta MD [Medical Doctor] - (Please follow up w/ Dr. Zuleta in office as an outpatient in 10 days time, or sooner with any additional concerns or complaints. Please contact the office as soon as possible to schedule this appointment.)
--- NOTE | 2016-09-07 11:12 | PCMIDPN ---
Assessment/Plan: 1. Left knee septic arthritis status post washout: Microbiology unrevealing thus far/crystals negative. Patient's last odontogenic procedure was in late June. No recent travel. Continue ceftriaxone, but will increase dose to 2 g daily for 3 weeks. Inter agency transfer form filled out. The patient has an appointment to see Dr. Awan September 14 at 9:30 a.m.. Subjective: Feels great, ready to go home. Objective: Ceftriaxone 1 g IV daily day for Afebrile Vital Signs Temp Pulse Resp BP Pulse Ox 36.7 C 81 16 110/47 L 95 09/07/16 07:54 09/07/16 07:54 09/07/16 07:54 09/07/16 07:54 09/07/16 07:54 Microbiology 09/05/16 03:50 Gram Stain - Final Knee - Aspirate Laboratory Results 09/07/16 04:24 09/07/16 04:24 09/06/16 09/07/16 09/08/16 05:59 05:59 05:59 Intake Total 1670 Balance 1670 ESR 39 MM/HR (0-30) H 09/04/16 23:55 C-Reactive Protein 205.4 mg/L (<10.0) H 09/04/16 23:55 The cultures still sterile Negative Gram stain for organisms - Physical Exam General Appearance: alert, no apparent distress EENT: pharynx normal, No scleral icterus Respiratory: lungs clear Cardiac/Chest: regular rate, rhythm, No systolic murmur Extremities: other (Left knee with minimal swelling. Incision looks fine no erythema or discharge.) Skin: No rash, No embolic lesions ICD10 Worksheet Patient Problems: Problems Problem Status Diagnosed Septic joint Acute
--- NOTE | 2016-09-07 11:13 | PDIAF ---
- Diagnosis Diagnosis: Left knee septic arthritis Code Status: Full Code - Medication Management Discharge Medications: Medications to Continue on Transfer Aspirin EC [Aspirin EC 81 mg (*)] 81 mg PO DAILY 09/05/16 [Last Taken 08/22/16] Herbals/Supplements -Info Only 1 ea PO DAILY 09/05/16 [Last Taken Unknown] Ibuprofen [Motrin (*)] 600 mg PO DAILY PRN 09/05/16 [Last Taken 09/04/16] Nitroglycerin [Nitrostat 0.4 mg (*)] 0.4 mg SL Q5M PRN 09/05/16 [Last Taken Unknown] Group Home Antibiotics: Ceftriaxone 2 g IV daily Sql Programmer Antibiotic Stop Date: 09/26/16 Discharge Medications: Refer to the Discharge Home Medication list for PRN reason. PICC Care - Routine: Yes - Labs/Radiology CBC Date: 09/12/16 (Fax results to Dr. Awan [phone]) CMP Date: 09/12/16 (Fax results to Dr. Awan [phone]) CRP Date: 09/19/16 (Fax results to Dr. Awan [phone]) - Follow Up Care Current Providers and Referrals: VILMA PORTILLO,. [Family Provider] - As per Instructions Valerio Zuleta MD [Medical Doctor] - (Please follow up w/ Dr. Zuleta in office as an outpatient in 10 days time, or sooner with any additional concerns or complaints. Please contact the office as soon as possible to schedule this appointment.) Anil Awan MD [Medical Doctor] - (Patient has an appointment at [facility] for [facility] Diseases September 14 at 9:30 a.m.)
--- NOTE | 2016-09-07 12:27 | PDIAF ---
- Diagnosis Diagnosis: Left knee septic arthritis Code Status: Full Code - Medication Management Discharge Medications: Medications to Continue on Transfer Aspirin EC [Aspirin EC 81 mg (*)] 81 mg PO DAILY 09/05/16 [Last Taken 08/22/16] Herbals/Supplements -Info Only 1 ea PO DAILY 09/05/16 [Last Taken Unknown] Ibuprofen [Motrin (*)] 600 mg PO DAILY PRN 09/05/16 [Last Taken 09/04/16] Nitroglycerin [Nitrostat 0.4 mg (*)] 0.4 mg SL Q5M PRN 09/05/16 [Last Taken Unknown] cefTRIAXone [Rocephin] 2 gm IV DAILY #0 vial 09/07/16 [Last Taken Unknown] Detention Antibiotics: Ceftriaxone 2 g IV daily Detention Antibiotic Stop Date: 09/26/16 Discharge Medications: Refer to the Discharge Home Medication list for PRN reason. PICC Care - Routine: Yes - Orders Services needed: Home Care, Registered Nurse Home Care Face to Face: I certify that this patient was under my care and that I had the required [id number] encounter meeting the encounter requirements on the discharge day. My findings support the fact that the patient is homebound as defined in CMS Chapter 7 Medicare Benefits Manual 30.1.1, The condition of the patient is such that there exists a normal inability to leave home and consequently, leaving home would require a considerable and taxing effort. Diet Recommendation: no restrictions on diet Diet Texture: Regular Texture Diet Wound Care Instructions: . Please keep your incision sites clean and dry. You may cover them with waterproof bandages for bathing, but please do not submerge your incisions until your next follow up appointment w/ Dr. Zuleta. 2. Please watch for signs of increasing infection, including increased swelling, pain, significant discharge, redness or warmth, as well as constitutional symptoms such as fevers, chills, nausea or vomiting. Please notify the clinic immediately should any of these occur. 3. You are encouraged to use ice, light compression and elevation for relief of any mild swelling of the knee, as well as over the counter medications (acetomenphen, ibuprofen) for relief of any mild pain/discomfort. If you experience significant pain or discomfort, please contact the office as soon as possible. 4. Please contact the office ) to set up a follow up appointment 10 days from your surgery w/ Dr. Zuleta, or sooner with any additional concerns or complaints. - Tyler Baker PA-C, [facility] - Labs/Radiology CBC Date: 09/12/16 (Fax results to Dr. Awan [phone]) CMP Date: 09/12/16 (Fax results to Dr. Awan [phone]) CRP Date: 09/19/16 (Fax results to Dr. Awan [phone]) - Follow Up Care Current Providers and Referrals: VILMA PORTILLO,. [Family Provider] - As per Instructions Valerio Zuleta MD [Medical Doctor] - (Please follow up w/ Dr. Zuleta in office as an outpatient in 10 days time, or sooner with any additional concerns or complaints. Please contact the office as soon as possible to schedule this appointment.) Anil Awan MD [Medical Doctor] - (Patient has an appointment at [facility] for Infectious Diseases September 14 at 9:30 a.m.)
--- NOTE | 2016-09-07 12:58 | GDS ---
[f rep st] DISCHARGE SUMMARY DISCHARGE DIAGNOSIS: 1. Left knee septic joint/nontraumatic. 2. Pain due to this. 3. Concern for a heart murmur. 4. Leukocytosis. 5. Hyperglycemia. CONSULTATIONS: During her stay: 1. Dr. Anil Awan. 2. Dr. Valerio Zuleta. BRIEF HISTORY: The patient is a 56-year-old woman who presented to the emergency room with complaint s of left knee pain. She was seen and evaluated by Orthopedics, who did an I and D. it appears that she has a septic knee joint that was nontraumatic, and she is being treated with ceftriaxone. She w ill further follow up with Dr. Zuleta and Dr. Anil Awan in the outpatient setting. HOSPITAL COURSE: 1. Left septic knee joint. She is postop day #2 for an I and D. She is on ceftriaxone. She is amb ulating well. 2. Pain due to this. This is well controlled. 3. Concern for a heart murmur. An echocardiogram was performed, which shows normal LV systolic func tion with an EF of 65% to 70%. 4. Leukocytosis, resolved. 5. Hyperglycemia, likely acute response. Hemoglobin A1c is 5.7. CONDITION AT DISCHARGE: Stable. Blood pressure is 110/47. Heart rate is 81. Respiratory rate is 1 6. O2 sats on room air are 95%. Temperature is 36.7 Celsius. MEDICATIONS AT DISCHARGE: Please see the EMR. DISCHARGE INSTRUCTIONS: 1. To follow up with Dr. Anil Awan in the outpatient setting. 2. To keep her incision clean and dry. 3. To watch for any signs or symptoms of infection. 4. To follow up with Dr. Zuleta in his office in 10 days. Greater than 30 minutes discharging and coordinating care. /[id number]/MODL
[2016-09-07 15:20] VITALS: BP 119/70; O2SAT 98
--- NOTE | 2016-09-07 18:43 | IR ---
Imaging-Guided Peripherally Inserted Central Catheter History: Left knee septic arthritis. Prophylactic Antibiotic: Cefazolin was not ordered and administered for antimicrobial prophylaxis be cause it was not medically necessary for this procedure. VTE Prophylaxis: There is not an order for VTE prophylaxis to be given within 24 hours after procedu re end time because it was not medically necessary for this procedure. Crosscutting Measure: Patient's current list of medications including all known prescriptions, over- the-counters, herbals, and vitamin/mineral/dietary supplements are reviewed. Medications' name, dosa ge, frequency, and route of administration are confirmed. Technique: Following informed consent, the right arm was prepped and draped in sterile fashion. 1% Xy locaine was used for local anesthetic. All elements of maximal sterile barrier technique including cap, mask, sterile gown, sterile gloves, large sterile sheet, hand hygiene, and 2% chlorhexidine for cutaneous antisepsis, followed. Ultrasound evaluation of potential access site was performed. After successfully identifying a patent vessel, ultrasound guidance was used to puncture the vein. A permanent recording was created for the patient's record. Ultrasound transducer was placed in sterile sleeve and used for real-time imaging guidance over steri le gel to enter the basilic vein. 0.018 measuring wire was passed centrally under fluoroscopic contro l. A skin lefty with scalpel blade was followed by removing the access needle. A 4 Zambian peel-away sh eath was followed by a 4 [place]ian single-lumen central catheter, trimmed to 40 cm length. . The tip o f the catheter was positioned centrally and the guidewire removed. A single fluoroscopic spot image w as obtained in inspiration. The hub of the catheter was fixed to the skin using a sterile StatLock ad hesive device, and a sterile dressing was applied. The catheter was irrigated. Findings: The tip of the central catheter terminates at the junction of the superior vena cava and th e right atrium. Fluoroscopy: 0.1 minutes, 1 images Impression: 4 [place]ian single lumen peripherally inserted central catheter is ready to use.
[2016-09-09] MEDS ORDERED: cefTRIAXone 2 GM in D5W 50 ML IV SCH (09:00)
== END 2016-09-07 16:41 | disposition home or self-care (01) | DRG 489 ==
LOC: CED 20:07 → F3E 09-05 05:03
PROVIDERS: ADMIT Internal Medicine; ATTEND Internal Medicine
PROC: 0S9D3ZZ Drainage of Left Knee Joint, Percutaneous Approach (ICD-10-PCS; 2016-09-04)
PROC: 0S9D3ZZ Drainage of Left Knee Joint, Percutaneous Approach (ICD-10-PCS; principal; 2016-09-05 02:30)
PROC: 0SBD4ZZ Excision of Left Knee Joint, Percutaneous Endoscopic Approach (ICD-10-PCS; principal; 2016-09-05 02:30)
PROC: 02HV33Z Insertion of Infusion Device into Superior Vena Cava, Percutaneous Approach (ICD-10-PCS; 2016-09-07)
DX: M00.9 Pyogenic arthritis, unspecified (principal); M65.862 Other synovitis and tenosynovitis, left lower leg; R01.1 Cardiac murmur, unspecified; R73.9 Hyperglycemia, unspecified; Z72.0 Tobacco use
CPT/HCPCS: 96365; 97116-GP; 97161-GP; C1751; G0463-PO; J0692; J0696; J1100; J2001; J2250; J2405; J2704; J3010; J3370

== ENCOUNTER 2016-09-11 13:05 | Emergency (ER) | payer MEDICAID ==
--- NOTE | 2016-09-11 14:07 | EDPHY ---
H & P Stated Complaint: infection l knee/increasing swelling deswpite ivabx Time Seen by Provider: 09/11/16 13:27 HPI/ROS: CHIEF COMPLAINT: fever HISTORY OF PRESENT ILLNESS: 56-year-old female presents emergency department reporting a fever last night to 101.2. Patient reports no fever today, no chills. Patient was admitted to the hospital last week, discharged 5 days ago with diagnosis of a septic joint. Patient had a several day stay in the hospital, seen by Dr. Zuleta and had a left knee washout in the OR. Patient was sent home with a PICC line and IV Rocephin that she has been infusing daily. Patient reports no increased swelling or redness to her knee though reports mild increase pain with ambulation. Patient has been taking 600 mg of ibuprofen every 6 hours. She reports a mild nausea and decreased appetite. No urinary symptoms, no cough or cold symptoms. No abdominal pain, no diarrhea. REVIEW OF SYSTEMS: A comprehensive 10 point review of systems is otherwise negative aside from elements mentioned in the history of present illness. Source: Patient Exam Limitations: No limitations - Personal History Current Tetanus/Diphtheria Vaccine: Yes - Medical/Surgical History Hx Asthma: No Hx Chronic Respiratory Disease: No Hx Diabetes: No Hx Cardiac Disease: Yes Hx Renal Disease: No Hx Cirrhosis: No Hx Alcoholism: No Hx HIV/AIDS: No Hx Splenectomy or Spleen Trauma: No Other PMH: angina - Social History Smoking Status: Current every day smoker - Physical Exam Exam: Physical Exam Gen: Alert and Oriented, NAD HEENT: PERRL, moist mucous membranes NECK: no meningismus CV: regular rate and regular rhythm PULM: CTAB, no wheezes ABDOMEN: soft, non tender to palpation, BS present BACK: No CVA tenderness NEURO: Neurologically grossly intact EXTREMITIES: Left knee with moderate effusion, no erythema, 2 surgical incisions free from erythema, no drainage, no calf tenderness or swelling. SKIN: no rash or break in skin on exposed skin PSYCH: answers questions appropriately. Constitutional: Initial Vital Signs Temperature (C) 36.5 C 09/11/16 13:08 Heart Rate 82 09/11/16 13:08 Respiratory Rate 09/11/16 13:08 Blood Pressure 113/85 H 09/11/16 13:08 O2 Sat (%) 99 09/11/16 13:08 O2 Delivery Mode Room Air Allergies/Adverse Reactions: Sulfa (Sulfonamide Antibiotics) Allergy (Intermediate, Verified 09/11/16 13:07) Rash Home Medications: Medication Instructions Recorded Aspirin EC [Aspirin EC 81 mg (*)] 81 mg PO DAILY 09/05/16 Herbals/Supplements -Info Only 1 ea PO DAILY 09/05/16 Ibuprofen [Motrin (*)] 600 mg PO DAILY PRN 09/05/16 Nitroglycerin [Nitrostat 0.4 mg 0.4 mg SL Q5M PRN 09/05/16 (*)] cefTRIAXone [Rocephin] 2 gm IV DAILY #0 vial 09/07/16 Medical Decision Making Procedures: Procedure: Arthrocentesis. Indication: Evaluation for the possibility of septic joint. Risks, benefits, alternatives of the procedure were discussed with the patient and consent obtained. The patient was prepped and draped in the usual sterile fashion over the left knee joint. Local anesthesia was provided with 1% lidocaine. The joint space was entered with a 18 gauge needle and 20 cc of serous fluid was obtained. As I was pulling the needle out, the patient jerked and then there was 2ml of ibeth blood The procedure was performed by myself. ED Course/Re-evaluation: 56 year old non toxic appearing female s/p I&D of left knee for a presumed septic joint presents with increased pain in her left knee and a temperature to 101.2 last [address] Patient called Dr. Awan's office last night, the nurse told her to take 600 mg of ibuprofen every 6 hours instead of every 8 hours, altered this morning asking if she was feeling better and she said no so they recommended she come to the emergency department. On review of the patient's cultures of her joint fluid, there is no growth after 7 days. 230pm-I have consulted with Dr. Montanez with Infectious Disease. She is recommending getting some labs including LFTs and a chlamydia. And a possible 2nd tap of her knee to evaluate for crystals again. I have discussed this plan with the patient, she is comfortable with this plan. 5pm- synovial fluid returns showing no crystals, white cells at 51,000, red cells 49,000. I spoke with Dr. Christine Montanez. The patient is nontoxic appearing , afebrile, normal vital signs, CRP is down to 126.9 from to 0 5 on the 04 of September. White blood cell count is 9.15 down from 13.9 on September 05. The patient has a follow-up appointment in [address] Zuleta and in [address] Awan. She is given strict return precautions for worsening symptoms, I have recommended she continue her Rocephin daily and other medications. She is comfortable with this plan. Differential Diagnosis: Diagnosis considered but not limited to septic knee, reactive inflammation, drug fever, chlamydia, gout. - Data Points Laboratory Results: Laboratory Results 09/11/16 14:35 09/11/16 14:35 09/11/16 09/11/16 09/11/16 15:30 15:30 14:35 WBC RBC Hgb Hct MCV MCH MCHC RDW Plt Count MPV Neut % (Auto) Lymph % (Auto) Lewis % (Auto) Eos % (Auto) Baso % (Auto) Nucleat RBC Rel Count Absolute Neuts (auto) Absolute Lymphs (auto) Absolute Monos (auto) Absolute Eos (auto) Absolute Basos (auto) Absolute Nucleated RBC Immature Gran % Immature Gran # ESR Sodium Potassium Chloride Carbon Dioxide Anion Gap BUN Creatinine Estimated GFR Glucose Calcium Total Bilirubin Conjugated Bilirubin Unconjugated Bilirubin AST ALT Alkaline Phosphatase C-Reactive Protein Total Protein Albumin Fl Pathologist Review Alda MORA MD Synovial Source SYNOVIAL Synovial Color RED (CLS/PALE YL) Synovial Appearance CLOUDY H (CLEAR) Synovial WBC 59014 /mm3 H /mm3 (0-150) Synovial RBC 25903 /mm3 H /mm3 (0-0) Synovial Neutrophils 93 % H % (0-25) Synovial Lymphocytes 3 % % Synov Monos/Macrophage 4 % % Synovial Crystals NONE SEEN (NONE SEEN) C.trachomatis RNA (TMA) Pending Influenza Typ A,B (DFA) 09/11/16 09/11/16 09/11/16 14:35 14:35 14:35 WBC 9.15 10^3/uL 10^3/uL (3.80-9.50) RBC 4.06 10^6/uL L 10^6/uL (4.18-5.33) Hgb 11.8 g/dL L g/dL (12.6-16.3) Hct 35.6 % L % (38.0-47.0) MCV 87.7 fL fL (81.5-99.8) MCH 29.1 pg pg (27.9-34.1) MCHC 33.1 g/dL g/dL (32.4-36.7) RDW 12.9 % % (11.5-15.2) Plt Count 447 10^3/uL H 10^3/uL (150-400) MPV 10.0 fL fL (8.7-11.7) Neut % (Auto) 74.3 % H % (39.3-74.2) Lymph % (Auto) 13.7 % L % (15.0-45.0) Lewis % (Auto) 10.5 % % (4.5-13.0) Eos % (Auto) 0.5 % L % (0.6-7.6) Baso % (Auto) 0.7 % % (0.3-1.7) Nucleat RBC Rel Count 0.0 % % (0.0-0.2) Absolute Neuts (auto) 6.80 10^3/uL H 10^3/uL (1.70-6.50) Absolute Lymphs (auto) 1.25 10^3/uL 10^3/uL (1.00-3.00) Absolute Monos (auto) 0.96 10^3/uL H 10^3/uL (0.30-0.80) Absolute Eos (auto) 0.05 10^3/uL 10^3/uL (0.03-0.40) Absolute Basos (auto) 0.06 10^3/uL 10^3/uL (0.02-0.10) Absolute Nucleated RBC 0.00 10^3/uL 10^3/uL (0-0.01) Immature Gran % 0.3 % % (0.0-1.1) Immature Gran # 0.03 10^3/uL 10^3/uL (0.00-0.10) ESR 75 MM/HR H MM/HR (0-30) Sodium 141 mEq/L mEq/L (134-144) Potassium 4.3 mEq/L mEq/L (3.5-5.2) Chloride 105 mEq/L mEq/L (97-110) Carbon Dioxide 24 mEq/l mEq/l (22-31) Anion Gap 12 mEq/L mEq/L (8-16) BUN 9 mg/dL mg/dL (7-23) Creatinine 0.6 mg/dL mg/dL (0.6-1.0) Estimated GFR > 60 Glucose 102 mg/dL H mg/dL (70-100) Calcium 10.0 mg/dL mg/dL (8.5-10.4) Total Bilirubin 0.5 mg/dL mg/dL (0.1-1.4) Conjugated Bilirubin 0.5 mg/dL mg/dL (0.0-0.5) Unconjugated Bilirubin 0.0 mg/dL mg/dL (0.0-1.1) AST 30 IU/L IU/L (14-46) ALT 64 IU/L H IU/L (9-52) Alkaline Phosphatase 162 IU/L H IU/L (38-126) C-Reactive Protein 126.9 mg/L H mg/L (<10.0) Total Protein 7.4 g/dL g/dL (6.3-8.2) Albumin 3.7 g/dL g/dL (3.5-5.0) Fl Pathologist Review Synovial Source Synovial Color Synovial Appearance Synovial WBC Synovial RBC Synovial Neutrophils Synovial Lymphocytes Synov Monos/Macrophage Synovial Crystals C.trachomatis RNA (TMA) Influenza Typ A,B (DFA) NEGATIVE FOR FLU (NEGATIVE) Departure - Departure Disposition: Home, Routine, Self-Care Clinical Impression: Left knee pain Qualifiers: Chronicity: acute Qualified Code(s): M25.562 - Pain in left knee Condition: Good Instructions: Swollen Knee Joint (ED) Additional Instructions: Rest, elevate your leg, continue your medications as prescribed. Follow up with Dr. Zuleta as scheduled on and Dr. Awan as scheduled on Saturday. Return to the emergency department for worsening symptoms, other questions or concerns. Referrals: Valerio Zuleta MD [Medical Doctor] - As per Instructions Anil Awan MD [Medical Doctor] - As per Instructions
[2016-09-11 14:49] LABS: % IMMATURE GRANULYOCYTES 0.3 % (0.0-1.1); ABSOLUTE IMMATURE GRANULOCYTES 0.03 10^3/uL (0.00-0.10); ADD DIFF? NO; ADD MORPH? NO; ADD SCAN? NO; ATYPICAL LYMPHOCYTE FLAG 20 (0-99); FRAGMENT RBC FLAG 0 (0-99); HEMATOCRIT 35.6 % (38.0-47.0); HEMOGLOBIN 11.8 g/dL (12.6-16.3); LEFT SHIFT FLG 0 (0-99); LIPEMIA HEMOLYSIS FLAG 80 (0-99); MEAN CELL HEMOGLOBIN 29.1 pg (27.9-34.1); MEAN CELL HEMOGLOBIN CONCENTR. 33.1 g/dL (32.4-36.7); MEAN CELL VOLUME 87.7 fL (81.5-99.8); PLATELET CLUMPS FLAG 0 (0-99); PLATELET COUNT 447 10^3/uL (150-400); RED BLOOD CELL COUNT 4.06 10^6/uL (4.18-5.33); RED CELL DISTRIBUTION WIDTH 12.9 % (11.5-15.2)
[2016-09-11 15:11] LABS: SEDIMENTATION RATE 75 MM/HR (0-30)
[2016-09-11 15:14] LABS: ALANINE AMINOTRANSFERASE 64 IU/L (9-52); ALBUMIN 3.7 g/dL (3.5-5.0); ALKALINE PHOSPHATASE 162 IU/L (38-126); ANION GAP 12 mEq/L (8-16); ASPARTATE AMINOTRANSFERASE 30 IU/L (14-46); BILIRUBIN,TOTAL 0.5 mg/dL (0.1-1.4); BILIRUBIN-CONJUGATED 0.5 mg/dL (0.0-0.5); CARBON DIOXIDE 24 mEq/l (22-31); CHLORIDE 105 mEq/L (97-110); CREATININE 0.6 mg/dL (0.6-1.0); GLOMERULAR FILTRATION RATE > 60; GLUCOSE 102 mg/dL (70-100); POTASSIUM 4.3 mEq/L (3.5-5.2); SODIUM 141 mEq/L (134-144); TOTAL PROTEIN 7.4 g/dL (6.3-8.2)
[2016-09-11 15:44] LABS: C-REACTIVE PROTEIN 126.9 mg/L (<10.0)
[2016-09-11 15:57] LABS: CRYSTALS, SYNOVIAL FLUID NONE SEEN (NONE SEEN)
[2016-09-11 16:23] LABS: WBC, SYNOVIAL FLUID 51449 /mm3 (0-150)
[2016-09-11 16:58] VITALS: PULSE 89; RESP 16; O2SAT 96
[2016-09-11 17:22] VITALS: BP 128/89; TEMP 97.9
== END 2016-09-11 17:22 | disposition home or self-care (01) ==
PROC: 0S9D3ZZ Drainage of Left Knee Joint, Percutaneous Approach (ICD-10-PCS; principal; 2016-09-11)
DX: M25.562 Pain in left knee (principal); F17.200 Nicotine dependence, unspecified, uncomplicated; Z79.82 Long term (current) use of aspirin

== ENCOUNTER → 2016-11-08 | Outpatient (CLI) | payer MEDICAID | LOC: CIMAGING 12:59 | DX: M25.562 Pain in left knee (principal); M25.462 Effusion, left knee | CPT/HCPCS: 73562-PO ==